=== PATIENT | female | born 1990 | race Caucasian/White ===

== ENCOUNTER 2016-11-09 02:37 | Emergency (ER) | payer OTHER ==
[~2016-11-09] VITALS: Ht 144.8 cm; Wt 103.2 kg
[~2016-11-09 02:37] MED LIST: CIPR-9 PO
[2016-11-09 03:07] VITALS: BP 117/75; PULSE 82; RESP 18; TEMP 97.8; O2SAT 98
[2016-11-09] MEDS ORDERED: ONDANSETRON HCL 4 MG/2 ML VIAL IV ONE (03:45)
[2016-11-09] MEDS ORDERED: SODIUM CHLOR 0.9% 1000 ML INJ 1,000 ML IV ONE ×2 (03:45→05:45)
[2016-11-09 04:07] LABS: AUTOMATED NEUTROPHIL # 13.3 TH/MM3 (1.8-7.7); BASOPHIL % 0.1 % (0.0-2.0); HEMATOCRIT 36.8 % (35.0-46.0); HEMO FLAGS DIFF FINAL; LYMPH % 5.3 % (9.0-44.0); LYMPHOCYTE # 0.8 TH/MM3 (1.0-4.8); MEAN CELL VOLUME 85.1 FL (80.0-100.0); MEAN CORPUSCULAR HEMOGLOBIN 30.1 PG (27.0-34.0); MEAN CORPUSCULAR HGB CONC 35.4 % (32.0-36.0); MONO % 4.1 % (0.0-8.0); NEUT % 90.5 % (16.0-70.0); PLATELET COUNT 218 TH/MM3 (150-450); RED BLOOD COUNT 4.33 MIL/MM3 (4.00-5.30); RED CELL DISTRIBUTION WIDTH 13.4 % (11.6-17.2); WHITE BLOOD COUNT 14.7 TH/MM3 (4.0-11.0)
[2016-11-09] MEDS ORDERED: ZOFR4TAB3 SL (04:30)
--- NOTE | 2016-11-09 04:30 | PD ---
HPI Chief Complaint: GI Complaint Time Seen by Provider: 03:44 Travel History International Travel<30 days: No Contact w/Intl Traveler<30days: No Traveled to known affect area: No History of Present Illness HPI The patient is a 26 year old female who presents to the [facility] emergency department with a history of nausea and vomiting that began at approximately 8 to 9 PM last night. The patient reports that she's had intractable vomiting with difficulty keeping any fluids down. She reports that she also became incontinent of urine whenever she would dry heaves. The patient denies having any dysuria or urinary urgency. She reports that she has had urinary frequency, however she attributed this to her diagnosis of PCOS. The patient reports that she is on an oral contraceptive for this. She reports that her last menstrual cycle was March 2016. She reports that her menstrual cycles are irregular related to the polycystic ovarian syndrome. She denies having any fevers. She denies having any sick contacts, foreign travel, recent antibiotic use in the last 3 months. She reports that she did have 1 stool at the onset of her vomiting. She denies having any focal abdominal pain. She denies having any hematemesis. She denies having any blood in her stool or black or tarry stools. She denies having any mucus in her stool. She reports having low back pain across her low back last night that resolved spontaneously. The patient reports that she came in when she began to feel lightheaded and diaphoretic whenever she tried to get up off of the bathroom floor. The patient denies any recent fevers, cough, congestion, neck pain, chest pain, shortness of breath, abdominal pain, or neurologic symptoms. [facility] Past Medical History Narrative Medical The patient's past medical history is significant for polycystic ovarian syndrome, gestational diabetes, irregular heartbeat, irregular menstrual cycles , frequent urinary tract infections. ADHD: Yes Heart Rhythm Problems: Yes (Irregular heart beat per pt ) Diabetes: Yes (GESTATIONAL DIABETES) Patient Takes Glucophage: No Diminished Hearing: No Genitourinary: Yes (FREQUENT UTI'S) Medical other: Yes (PCOS) Immunizations Current: Yes Tetanus Vaccination: > 5 Years ?: Not LMP: 03/2017 : 1 Para: 1 Past Surgical History Narrative Surgical The patient's past surgical history is significant for times one. Abdominal Surgery: Yes (C-SEC X 1) Section: Yes (X 1) Social History Alcohol Use: No Tobacco Use: No (QUIT IN 2011 SMOKED SOCIALLY CIGS) Substance Use: Yes (marijuana) Allergies-Medications (Allergen,Severity, Reaction): Coded Allergies: Sulfa (Verified Allergy, Severe, HIVES, 11/09/16) Reported Meds & Prescriptions Reported Meds & Active Scripts Active Prochlorperazine Supp (Prochlorperazine) 25 Mg Supp 25 Mg RECTAL Q12H PRN Zofran Odt (Ondansetron Odt) 4 Mg Tab 4 Mg SL Q6HR PRN Narrative Medication She reports that she takes a vitamin and an oral contraceptive Review of Systems Except as stated in HPI: all other systems reviewed are Neg General / Constitutional: No: Fever Eyes: No: Visual changes HENT: Positive: Lightheadedness, No: Headaches Cardiovascular: No: Chest Pain or Discomfort Respiratory: No: Shortness of Breath Gastrointestinal: Positive: Nausea, Vomiting, Diarrhea, Changes in Bowel Habits , No: Abdominal Pain, Hematemesis, Hematochezia, Constipation, Indigestion, Loss of Appetite Genitourinary: No: Dysuria Musculoskeletal: No: Pain Skin: No Rash Neurologic: No: Weakness Psychiatric: No: Depression Endocrine: No: Polydipsia Hematologic/Lymphatic: No: Easy Bruising Physical Exam Narrative General: The patient is a well-developed well-nourished female in no acute distress. Head and Neck exam: Head is normocephalic atraumatic. Eyes: EOMI, pupils are equal round and reactive to light. Nose: Midline septum with pink mucous membranes Mouth: Dentition unremarkable. Moist mucus membranes. Posterior oropharynx is not erythematous. No tonsillar hypertrophy. Uvula midline. Airway patent. Neck: No palpable lymphadenopathy. No nuchal rigidity. No thyromegaly. Cardiovascular: Regular rate and rhythm without murmurs, gallops, or rubs. Lungs: Clear to auscultation bilaterally. No wheezes, rhonchi, or rales. Abdomen: Soft, without tenderness to palpation in all 4 quadrants of the abdomen. No guarding, rebound, or rigidity. Normal bowel sounds are audible. Extremities: No clubbing, cyanosis, or edema. 2+ pulses in all 4 extremities. Back: No spinous process tenderness to palpation. No costovertebral angle tenderness to palpation. Neurologic Exam: Grossly nonfocal. Skin Exam: No rash noted. Intact skin that is warm and dry. Data Data Last Documented VS Vital Signs Date Time Temp Pulse Resp B/P Pulse Ox O2 Delivery O2 Flow Rate FiO2 11/09/16 06:28 79 18 118/76 99 Room Air 11/09/16 03:07 97.8 Orders Complete Blood Count With Diff (11/09/16 03:45) Comprehensive Metabolic Panel (11/09/16 03:45) C-Reactive Protein (Crp) (11/09/16 03:45) Lipase (11/09/16 03:45) Urinalysis - C+S If Indicated (11/09/16 03:45) Iv Access Insert/Monitor (11/09/16 03:45) Ecg Monitoring (11/09/16 03:45) Oximetry (11/09/16 03:45) Ed Urine Pregnancytest Poc (11/09/16 03:45) Sodium Chlor 0.9% 1000 Ml Inj (Ns 1000 M (11/09/16 03:45) Ondansetron Inj (Zofran Inj) (11/09/16 03:45) Sodium Chlor 0.9% 1000 Ml Inj (Ns 1000 M (11/09/16 05:45) Oral Rehydration (11/09/16 05:34) Labs Laboratory Tests Test 11/09/16 11/09/16 03:50 04:25 White Blood Count 14.7 TH/MM3 Red Blood Count 4.33 MIL/MM3 Hemoglobin 13.0 GM/DL Hematocrit 36.8 % Mean Corpuscular Volume 85.1 FL Mean Corpuscular Hemoglobin 30.1 PG Mean Corpuscular Hemoglobin 35.4 % Concent Red Cell Distribution Width 13.4 % Platelet Count 218 TH/MM3 Mean Platelet Volume 8.6 FL Neutrophils (%) (Auto) 90.5 % Lymphocytes (%) (Auto) 5.3 % Monocytes (%) (Auto) 4.1 % Eosinophils (%) (Auto) 0.0 % Basophils (%) (Auto) 0.1 % Neutrophils # (Auto) 13.3 TH/MM3 Lymphocytes # (Auto) 0.8 TH/MM3 Monocytes # (Auto) 0.6 TH/MM3 Eosinophils # (Auto) 0.0 TH/MM3 Basophils # (Auto) 0.0 TH/MM3 CBC Comment DIFF FINAL Differential Comment Sodium Level 142 MEQ/L Potassium Level 4.0 MEQ/L Chloride Level 107 MEQ/L Carbon Dioxide Level 23.9 MEQ/L Anion Gap 11 MEQ/L Blood Urea Nitrogen 13 MG/DL Creatinine 0.97 MG/DL Estimat Glomerular Filtration 71 ML/MIN Rate Random Glucose 113 MG/DL Calcium Level 8.2 MG/DL Total Bilirubin 0.4 MG/DL Aspartate Amino Transf 13 U/L (AST/SGOT) Alanine Aminotransferase 34 U/L (ALT/SGPT) Alkaline Phosphatase 93 U/L C-Reactive Protein 1.20 MG/DL Total Protein 7.0 GM/DL Albumin 3.5 GM/DL Lipase 131 U/L Urine Color YELLOW Urine Turbidity CLEAR Urine pH 6.5 Urine Specific [place] 1.018 Urine Protein TRACE mg/dL Urine Glucose (UA) NEG mg/dL Urine Ketones 10 mg/dL Urine Occult Blood NEG Urine Nitrite NEG Urine Bilirubin NEG Urine Urobilinogen LESS THAN 2.0 MG/DL Urine Leukocyte Esterase NEG Urine RBC 3 /hpf Urine WBC 1 /hpf Urine Squamous Epithelial 2 /hpf Cells Urine Amorphous Sediment RARE Urine Mucus FEW /lpf Microscopic Urinalysis Comment CULT NOT INDICATED MDM Medical Decision Making Medical Screen Exam Complete: Yes Emergency Medical Condition: Yes Medical Record Reviewed: Yes Differential Diagnosis Viral syndrome, versus gastroenteritis, versus dehydration, versus electrolyte derangements, versus Narrative Course During the course of the patients emergency department visit, the patients history, examination, and differential diagnosis were reviewed with the patient. The patient had IV access obtained and blood work sent for analysis. The patient was placed on a front desk monitor with oximetry and blood pressure monitoring. The patient was provided normal saline 1 L IV fluid bolus, Zofran 4 mg IV. The patients laboratory studies were reviewed and remarkable for a white count of 14.7, hemoglobin 13, platelets 218 with 90.5 neutrophils, lymphocytes 5.3. CMP is remarkable for glucose of 113, calcium 8.2, AST 13, C-reactive protein 1.20, lipase 131. Urinalysis was unremarkable except for 10 ketones. Bedside test was negative. The patient was able to tolerate by mouth hydration and was feeling improved. The patient is resting comfortably and feels better, is alert and in no distress. The patients results and examination findings were discussed with her. The repeat examination is unremarkable and benign. The history, exam, diagnostic testing, and current condition do not suggest any significant pathology to warrant further testing, continued ED treatment, admission, or surgical evaluation at this point. The vital signs have been stable. The patient does not have uncontrollable pain, intractable vomiting, or other significant symptoms. The patient's condition is stable and appropriate for discharge. The patient will pursue further outpatient evaluation with a primary care physician or other designated or consulting physician as indicated in the discharge instructions. The patient expressed understanding and was agreeable with this plan. Diagnosis Primary Impression: Vomiting and diarrhea Referrals: Primary Care Physician 2 days Patient Instructions: Acute Nausea and Vomiting (ED), General Instructions Scripts Prochlorperazine Supp 25 Mg Supp25 Mg RECTAL Q12H PRN (NAUSEA OR VOMITING) #3 SUPP Ref 0 Prov:Josiane Saucedo MD 11/09/16 Ondansetron Odt (Zofran Odt)4 Mg Tab4 Mg SL Q6HR PRN (Nausea/Vomiting) #7 TAB Ref 0 Prov:Josiane Saucedo MD 11/09/16 Disposition: 01 DISCHARGE HOME Condition: Stable Josiane Saucedo MD Nov 09, 2016 04:30
[2016-11-09 04:33] LABS: ALT (GPT) 34 U/L (10-53); ANION GAP 11 MEQ/L (5-15); AST (GOT) 13 U/L (15-37); BICARBONATE 23.9 MEQ/L (21.0-32.0); BLOOD UREA NITROGEN 13 MG/DL (7-18); CHLORIDE 107 MEQ/L (98-107); GLOMERULAR FILTRATION RATE 71 ML/MIN (>89); SODIUM (NA) 142 MEQ/L (136-145)
[2016-11-09 04:34] LABS: ALKALINE PHOSPHATASE 93 U/L (45-117); TOTAL BILIRUBIN ADULT 0.4 MG/DL (0.2-1.0)
[2016-11-09 05:12] LABS: BLOOD, URINE NEG (NEG); COMMENT (UR) CULT NOT INDICATED; CULTURE IF INDICATED CULT NOT INDICATED; GLUCOSE,URINE NEG (NEG); KETONE, URINE 10 mg/dL (NEG); MUCUS URINE FEW /lpf (OCC); NITRITE,URINE NEG (NEG); PH, URINE 6.5 (5.0-8.5); SQUAMOUS EPITHELIAL CELL URINE 2 /hpf (0-5); URINE COLOR YELLOW (YELLW/STRAW)
[2016-11-09] MEDS ORDERED: PROC25SU22 RECTAL (06:13)
[2016-11-09 06:28] VITALS: BP 118/76; PULSE 79; RESP 18; O2SAT 99
== END 2016-11-09 07:18 | disposition home or self-care (01) ==
LOC: NEPE 02:37
DX: R11.2 Nausea with vomiting, unspecified (principal)
CPT/HCPCS: 80053; 81001; 83690; 84703; 85025; 86140; 96361; 96374; 99284; J2405; J7030

== ENCOUNTER 2016-12-16 17:34 | Emergency (ER) | payer OTHER ==
[~2016-12-16] VITALS: Ht 144.8 cm; Wt 102.0 kg
[~2016-12-16 17:34] MED LIST changes: -CIPR-9 PO; +PROC25SU22 RECTAL; +ZOFR4TAB3 SL
[2016-12-16 17:42] VITALS: BP 130/75; PULSE 87; RESP 16; TEMP 98.3; O2SAT 98
--- NOTE | 2016-12-16 18:10 | PD ---
HPI Chief Complaint: Oral / Dental Pain or Problem Time Seen by Provider: 18:10 Travel History International Travel<30 days: No Contact w/Intl Traveler<30days: No Traveled to known affect area: No History of Present Illness HPI 26-year-old female presents to the emergency department for evaluation of right- sided dental pain for 1 week. Patient states that she has 2 dental caries, one on top and one on bottom. States that she is having pain coming from both of these teeth. Denies any injury or trauma. States that she has had some nausea recently and thinks it may be from this dental infection. Denies any fever, chills, vomiting, difficulty swallowing, facial swelling. She has been taking ibuprofen with minimal improvement of symptoms. States that she is an appointment with her dentist next week but states that the pain is too bad for her to wait until then. No other complaints. Denies however her menses are irregular. PFSH Past Medical History ADHD: Yes Heart Rhythm Problems: Yes (Irregular heart beat per pt ) Diabetes: Yes (GESTATIONAL DIABETES) Patient Takes Glucophage: No Diminished Hearing: No Genitourinary: Yes (FREQUENT UTI'S) Immunizations Current: Yes Tetanus Vaccination: Unknown Influenza Vaccination: No ?: Not LMP: 3 weeks ago : 1 Para: 1 Past Surgical History Abdominal Surgery: Yes (C-SEC X 1) Section: Yes (X 1) Social History Alcohol Use: No Tobacco Use: No (QUIT IN 2011 SMOKED SOCIALLY CIGS) Substance Use: Yes (marijuana) Allergies-Medications (Allergen,Severity, Reaction): Coded Allergies: Sulfa (Verified Allergy, Severe, HIVES, 12/16/16) Reported Meds & Prescriptions Reported Meds & Active Scripts Active No Active Prescriptions or Reported Medications Review of Systems Except as stated in HPI: all other systems reviewed are Neg Physical Exam Narrative GENERAL: Well-nourished and well-developed pleasant female patient in no acute distress who is nontoxic appearing. SKIN: Warm and dry. HEAD: Normocephalic and atraumatic. No facial swelling. EYES: No injection, drainage, or hyphema noted. PERRLA. EOMI. ENT: No nasal drainage noted. Oropharynx is clear and the TMs are normal with good landmarks. DENTAL: Poor dentition. Multiple dental caries. Right lower tooth #26 with dental caries and right upper tooth #3 with dental caries, these are the symptomatic teeth. No erythema, no swelling, no discharge or drainage. NECK: Supple and the trachea is midline. CARDIOVASCULAR: Regular rate and rhythm. RESPIRATORY: Breath sounds are equal bilaterally with no accessory muscle use, wheezing, rhonchi, or crackles. NEUROLOGICAL: Awake, alert, and oriented. Normal speech and gait. Cranial nerves are grossly intact. Data Data Last Documented VS Vital Signs Date Time Temp Pulse Resp B/P Pulse Ox O2 Delivery O2 Flow Rate FiO2 12/16/16 17:46 16 12/16/16 17:42 98.3 87 130/75 98 Orders Ed Urine Pregnancytest Poc (12/16/16 18:09) MDM Medical Decision Making Medical Screen Exam Complete: Yes Emergency Medical Condition: Yes Differential Diagnosis Dental caries versus dental infection versus gingivitis Narrative Course 26-year-old female presents to the emergency department for evaluation of dental pain for 1 week. Patient is afebrile, vital signs are stable. On physical examination she does have poor dentition and multiple dental caries. No abscess formation noted. ED urine test is negative. She'll be prescribed penicillin VK and tramadol. Instructed to keep the appointment with her dentist that she has for next week. Patient verbalizes understanding and agreement with treatment plan. Diagnosis Primary Impression: Pain due to dental caries Referrals: Dentist Patient Instructions: Dental Caries (ED), General Instructions Additional Instructions: Take medications as prescribed with food and a full glass of water. Do not take tramadol with alcohol around driving. Follow-up with your dentist. Return to the ED for any acute worsening of symptoms. Med/Other Pt SpecificInfo: Prescription(s) given Scripts No Active Prescriptions or Reported Meds Disposition: 01 DISCHARGE HOME Condition: Luna Drake Dec 16, 2016 18:10
[2016-12-16] MEDS ORDERED: TRAM50TA PO (18:18)
[2016-12-16] MEDS ORDERED: PENI250T59 PO (18:18)
== END 2016-12-16 18:25 | disposition home or self-care (01) ==
LOC: PHEFT 17:34
DX: K08.89 Other specified disorders of teeth and supporting structures (principal); K02.9 Dental caries, unspecified; Z87.440 Personal history of urinary (tract) infections; Z87.891 Personal history of nicotine dependence
CPT/HCPCS: 84703; 99282